=== PATIENT | male | born 1955 | race Caucasian/White ===

== ENCOUNTER 2017-03-19 19:36 | Observation (INO) | payer MEDICARE, OTHER ==
--- NOTE | 2017-03-19 20:00 | ED ---
General Adult HPI - General Chief complaint: Chest Pain Stated complaint: headache/chest pain/SOB Time Seen by Provider: 03/19/17 19:50 Source: patient, RN notes reviewed, old records reviewed Mode of arrival: wheelchair Limitations: no limitations - History of Present Illness Initial comments: This is a 62-year-old male with a year fevers or chest pain. Patient is history of angina history of heart disease, patient is earlier today. Patient is asked history of smoking. Patient doing a chest pain associated or sitting in a chair, worse with activity having a/chest and shortness of breath. No recent jealousy no sick contacts no fevers denies cough or congestion - Related Data Home Medications Medication Instructions Recorded Confirmed Aspirin EC [Ecotrin Low Dose] 81 mg PO DAILY 03/19/17 03/19/17 Atorvastatin [Lipitor] 40 mg PO HS 03/19/17 03/19/17 Baclofen 10 mg PO HS 03/19/17 03/19/17 Budesonide-Formot 160-4.5 Mcg 1 puff INHALATION RT-BID PRN 03/19/17 03/19/17 [Symbicort 160-4.5 Mcg Inhaler] Calcium Carbonate/Vitamin D3 1 tab PO DAILY 03/19/17 03/19/17 [Calcium 600-Vit D3 800 Tab] Celecoxib [CeleBREX] 200 mg PO DAILY 03/19/17 03/19/17 Citalopram Hydrobromide [CeleXA] 40 mg PO DAILY 03/19/17 03/19/17 HYDROcodone/APAP 10-325MG [[place] 1 tab PO QID 03/19/17 03/19/17 10-325] Metoprolol Succinate [Toprol XL] 50 mg PO DAILY 03/19/17 03/19/17 Multivitamins, Thera [Multivitamin 1 tab PO DAILY 03/19/17 03/19/17 (formulary)] Potassium 595 mg PO DAILY 03/19/17 03/19/17 buPROPion HCL [Wellbutrin SR] 150 mg PO DAILY 03/19/17 03/19/17 busPIRone HCL 15 mg PO BID 03/19/17 03/19/17 Previous Rx's Medication Instructions Recorded Lisinopril [Zestril] 20 mg PO DAILY #1 tab 03/20/17 Allergies Allergy/AdvReac Type Severity Reaction Status Date / Time No Known Allergies Allergy Verified 03/19/17 22:10 Review of Systems ROS Statement: Those systems with pertinent positive or pertinent negative responses have been documented in the HPI. ROS Other: All systems not noted in ROS Statement are negative. Past Medical History Past Medical History: Chest Pain / Angina, Hyperlipidemia, Hypertension History of Any Multi-Drug Resistant Organisms: None Reported Past Surgical History: Back Surgery, Hernia Repair, Orthopedic Surgery Past Psychological History: Depression Smoking Status: Former smoker Past Alcohol Use History: None Reported Past Drug Use History: None Reported - Past Family History Father Family Medical History: Chest Pain / Angina, Coronary Artery Disease (CAD) Mother Family Medical History: Cancer, Myocardial Infarction ([place]) General Exam Limitations: no limitations General appearance: alert, in no apparent distress Head exam: Present: atraumatic, normocephalic, normal inspection Eye exam: Present: normal appearance, PERRL, EOMI. Absent: scleral icterus, conjunctival injection, periorbital swelling ENT exam: Present: normal exam, mucous membranes moist Neck exam: Present: normal inspection. Absent: tenderness, meningismus, lymphadenopathy Respiratory exam: Present: normal lung sounds bilaterally. Absent: respiratory distress, wheezes, rales, rhonchi, stridor Cardiovascular Exam: Present: regular rate, normal rhythm, normal heart sounds. Absent: systolic murmur, diastolic murmur, rubs, gallop, clicks GI/Abdominal exam: Present: soft, normal bowel sounds. Absent: distended, tenderness, guarding, rebound, rigid Extremities exam: Present: normal inspection, full ROM, normal capillary refill. Absent: tenderness, pedal edema, joint swelling, calf tenderness Back exam: Present: normal inspection Neurological exam: Present: alert, oriented X3, CN II-XII intact Psychiatric exam: Present: normal affect, normal mood Skin exam: Present: warm, dry, intact, normal color. Absent: rash Course Vital Signs 03/19/17 03/19/17 03/19/17 19:44 19:54 20:58 Temperature 98.5 F Pulse Rate 78 86 Pulse Rate [ 79 [employer] ] Respiratory 20 18 Rate Blood Pressure 178/103 154/99 O2 Sat by Pulse 97 99 Oximetry 03/19/17 21:53 Temperature 97.9 F Pulse Rate Pulse Rate [ [employer] ] Respiratory Rate Blood Pressure O2 Sat by Pulse Oximetry - Reevaluation(s) Reevaluation #1: 03/19/17 20:24 Patient's pain 03/19/17 20:24 Pain is continuing EKG Findings - EKG Comments: EKG Findings:: EKG shows normal sinus rate of 73, by mouth 44, QRS 84, QTC 438 Medical Decision Making - Medical Decision Making 62 Edwin evaluation of heart disease, history of angina. History of chest pain today with chest pain and exertional dyspnea starting when he was watching TV earlier in the day. Continue. This point, pressure is chest with a deep breath. Patient be admitted for cardiac observation - Lab Data Result diagrams: 03/21/17 07:19 03/19/17 20:00 Lab Results 03/19/17 03/19/17 03/19/17 Range/Units 20:00 20:00 20:00 WBC 10.8 H (3.8-10.6) k/uL RBC 4.77 (4.30-5.90) m/uL Hgb 15.3 (13.0-17.5) gm/dL Hct 45.4 (39.0-53.0) % MCV 95.2 (80.0-100.0) fL MCH 32.0 (25.0-35.0) pg MCHC 33.6 (31.0-37.0) g/dL RDW 13.5 (11.5-15.5) % Plt Count 266 (150-450) k/uL Neutrophils % 67 % Lymphocytes % 19 % Monocytes % 7 % Eosinophils % 3 % Basophils % 1 % Neutrophils # 7.3 (1.3-7.7) k/uL Lymphocytes # 2.0 (1.0-4.8) k/uL Monocytes # 0.8 (0-1.0) k/uL Eosinophils # 0.3 (0-0.7) k/uL Basophils # 0.1 (0-0.2) k/uL PT (9.0-12.0) sec INR (<1.2) APTT (22.0-30.0) sec Sodium 143 (137-145) mmol/L Potassium 4.3 (3.5-5.1) mmol/L Chloride 105 (98-107) mmol/L Carbon Dioxide 28 (22-30) mmol/L Anion Gap 10 mmol/L BUN 16 (9-20) mg/dL Creatinine 1.00 (0.66-1.25) mg/dL Est GFR (MDRD) Af Amer >60 (>60 ml/min/1.73 sqM) Est GFR (MDRD) Non-Af >60 (>60 ml/min/1.73 sqM) Glucose 77 (74-99) mg/dL Calcium 9.9 (8.4-10.2) mg/dL Magnesium 2.3 (1.6-2.3) mg/dL Total Bilirubin 0.4 (0.2-1.3) mg/dL AST 34 (17-59) U/L ALT 37 (21-72) U/L Alkaline Phosphatase 109 (38-126) U/L Total Creatine Kinase 102 (55-170) U/L CK-MB (CK-2) 1.2 (0.0-2.4) ng/mL CK-MB (CK-2) Rel Index 1.2 Troponin I <0.012 (0.000-0.034) ng/mL Total Protein 7.4 (6.3-8.2) g/dL Albumin 4.4 (3.5-5.0) g/dL Lipase 92 (23-300) U/L 03/19/17 Range/Units 20:00 WBC (3.8-10.6) k/uL RBC (4.30-5.90) m/uL Hgb (13.0-17.5) gm/dL Hct (39.0-53.0) % MCV (80.0-100.0) fL MCH (25.0-35.0) pg MCHC (31.0-37.0) g/dL RDW (11.5-15.5) % Plt Count (150-450) k/uL Neutrophils % % Lymphocytes % % Monocytes % % Eosinophils % % Basophils % % Neutrophils # (1.3-7.7) k/uL Lymphocytes # (1.0-4.8) k/uL Monocytes # (0-1.0) k/uL Eosinophils # (0-0.7) k/uL Basophils # (0-0.2) k/uL PT 9.9 (9.0-12.0) sec INR 1.0 (<1.2) APTT 23.8 (22.0-30.0) sec Sodium (137-145) mmol/L Potassium (3.5-5.1) mmol/L Chloride (98-107) mmol/L Carbon Dioxide (22-30) mmol/L Anion Gap mmol/L BUN (9-20) mg/dL Creatinine (0.66-1.25) mg/dL Est GFR (MDRD) Af Amer (>60 ml/min/1.73 sqM) Est GFR (MDRD) Non-Af (>60 ml/min/1.73 sqM) Glucose (74-99) mg/dL Calcium (8.4-10.2) mg/dL Magnesium (1.6-2.3) mg/dL Total Bilirubin (0.2-1.3) mg/dL AST (17-59) U/L ALT (21-72) U/L Alkaline Phosphatase (38-126) U/L Total Creatine Kinase (55-170) U/L CK-MB (CK-2) (0.0-2.4) ng/mL CK-MB (CK-2) Rel Index Troponin I (0.000-0.034) ng/mL Total Protein (6.3-8.2) g/dL Albumin (3.5-5.0) g/dL Lipase (23-300) U/L - Radiology Data Radiology results: report reviewed (Chest x-ray is negative for acute disease), image reviewed Critical Care Time Critical Care Time: Yes Total Critical Care Time: 31 Disposition Clinical Impression: Chest pain Disposition: ADMITTED IP TO THIS [facility] Condition: Undetermined
[2017-03-19] MEDS ORDERED: HEPARIN SODIUM,PORCINE 5,000 UNIT/ML 1 ML VIAL IV PRN (20:22)
[2017-03-19] MEDS ORDERED: NITROGLYCERIN SL TABS 0.4 MG TAB SUBLINGUAL PRN (20:22)
[2017-03-19] MEDS ORDERED: HEPARIN SODIUM,PORCINE 5,000 UNIT/ML 1 ML VIAL IV ONE (20:22)
[2017-03-19] MEDS ORDERED: MORPHINE SULFATE 4 MG/ML SYRINGE IV PRN (20:22)
[2017-03-19] MEDS ORDERED: ASPIRIN 81 MG PO STA (20:22)
[2017-03-19] MEDS ORDERED: HEPARIN SODIUM,PORCINE/D5W PMX 25,000 UNIT in DEXTROSE/WATER 1 500ML.BAG IV SCH (20:30)
--- NOTE | 2017-03-19 20:38 | XR ---
EXAMINATION TYPE: XR chest 2V DATE OF EXAM: 03/19/2017 COMPARISON: 05/24/2012 INDICATION: Chest pain TECHNIQUE: Frontal and lateral views of the chest are obtained. FINDINGS: The heart size is normal. The pulmonary vasculature is normal. The lungs are clear. Anterior cervical fusion plate is evident. IMPRESSION: 1. No acute pulmonary process.
[2017-03-19 20:43] LABS: ALT 37 U/L (21-72); AST 34 U/L (17-59); Alkaline Phosphatase 109 U/L (38-126); Anion Gap 10 mmol/L; Blood Urea Nitrogen 16 mg/dL (9-20); Calcium 9.9 mg/dL (8.4-10.2); Carbon Dioxide 28 mmol/L (22-30); Chloride 105 mmol/L (98-107); Glucose 77 mg/dL (74-99); Magnesium 2.3 mg/dL (1.6-2.3); Non-African American GFR(MDRD) >60 (>60 ml/min/1.73 sqM); Potassium 4.3 mmol/L (3.5-5.1); Sodium 143 mmol/L (137-145); Total Bilirubin 0.4 mg/dL (0.2-1.3); Total Protein 7.4 g/dL (6.3-8.2)
[2017-03-19 20:49] LABS: Basophils # (A) 0.1 k/uL (0-0.2); Basophils % (A) 1 %; CH 33.1; CHCM 34.9; Eosinophils # (A) 0.3 k/uL (0-0.7); Eosinophils % (A) 3 %; HCT 45.4 % (39.0-53.0); HDW 2.41; HGB 15.3 gm/dL (13.0-17.5); Luc % (Auto) 3; Lymphocytes % (A) 19 %; MCHC 33.6 g/dL (31.0-37.0); MCV 95.2 fL (80.0-100.0); Mean Platelet Volume 8.6; Monocytes # (A) 0.8 k/uL (0-1.0); Monocytes % (A) 7 %; Neutrophils # (A) 7.3 k/uL (1.3-7.7); Neutrophils % (A) 67 %; RBC 4.77 m/uL (4.30-5.90); RDW 13.5 % (11.5-15.5); WBC 10.8 k/uL (3.8-10.6); WBC (Perox) 10.38
[2017-03-19 21:00] LABS: Partial Thromboplastin Time 23.8 sec (22.0-30.0); Prothrombin Time 9.9 sec (9.0-12.0)
[2017-03-19 21:09] LABS: Creatine Kinase 102 U/L (55-170)
[2017-03-19 21:23] LABS: Creatine Kinase MB 1.2 ng/mL (0.0-2.4); Troponin I <0.012 ng/mL (0.000-0.034)
--- NOTE | 2017-03-19 21:29 | CT ---
EXAMINATION TYPE: CT brain wo con DATE OF EXAM: 03/19/2017 COMPARISON: 10/21/2015 INDICATION: headche DLP: 1147 mGycm, Automated exposure control for dose reduction was used. CONTRAST: None CT of the brain is performed utilizing 3 mm thick sections through the posterior fossa and 3 mm thick sections through the remaining calvarium. Study is performed within 24 hours of arrival to the hosp ital. No abnormal hyperdensity is present to suggest an acute intracranial hemorrhage. No mass lesion is evident. No acute infarcts are evident. There is mild periventricular white matter hypodensity, most likely on the basis of chronic white matter ischemic changes. This was present previously. Ventricles and sulci are appropriate for the patient age. Paranasal sinuses and mastoid air cells within the [id number] are clear. IMPRESSIONS: 1. Mild periventricular white matter ischemic type changes.
[2017-03-19 23:28] VITALS: BMI 25.8
[2017-03-20] MEDS ORDERED: SYMBICORT 160-4.5 MCG INHALER INHALATION PRN (00:07)
[2017-03-20] MEDS ORDERED: ENALAPRILAT 1.25 MG/ML 1 ML VIAL IVP PRN (00:09)
[2017-03-20 00:12] LABS: Creatine Kinase 90 U/L (55-170)
[2017-03-20 00:25] LABS: Creatine Kinase MB 1.2 ng/mL (0.0-2.4); Troponin I <0.012 ng/mL (0.000-0.034)
[2017-03-20 07:43] LABS: Mean Platelet Volume 8.3
[2017-03-20 08:00] LABS: Cholesterol 213 mg/dL (<200); HDL Cholesterol 52 mg/dL (40-60)
[2017-03-20 08:17] LABS: Creatine Kinase 76 U/L (55-170)
[2017-03-20 08:29] LABS: Creatine Kinase MB 1.1 ng/mL (0.0-2.4); Troponin I <0.012 ng/mL (0.000-0.034)
--- NOTE | 2017-03-20 08:57 | CONS ---
This is a 62-year-old male who came in complaining of recurrent chest discomfort as well as headaches. He has noted his blood pressure has been elevated for the last one to two weeks. He has been under considerable stress. He monitors his blood pressure at home. He thought there was something wrong with the blood pressure machine because his blood pressure was quite high. This was confirmed here in the hospital and his blood pressure is elevated. The pain appears pleuritic in nature. He says it gets worse when he takes a deep breath. He is pain free at this time. His two serial ECGs are normal. Three sets of cardiac enzymes are completely normal. Electrolytes are normal. Renal function is normal. White count is 10.8 thousand. His home medications include enalapril 10 mg daily, Wellbutrin, potassium, metoprolol succinate 50 mg daily, Lipitor 40 mg daily and baby aspirin, Celexa, Celebrex. On examination, his blood pressure is 149/82 mmHg. The highest it has been here is 168/105 mmHg. Head and neck examination is normal. No JVD, thyromegaly or carotid bruit. Heart sounds are S1, S2 normal. No murmurs or gallops. Breath sounds are normal. No rhonchi, no crackles. Abdomen is soft, nontender. Extremities are warm, no edema. He is sitting comfortably in bed at this time. His chest x-ray was read as within normal limits. I reviewed his ECGs. He does not have any definite ST-T segment abnormalities. His troponins are normal x2. IMPRESSION: 1. Uncontrolled hypertension. 2. Atypical chest discomfort. 3. Dyslipidemia on statins. 4. Patient uses Celebrex regularly. SUGGEST: 1. Low salt diet. 2. Increase in enalapril to 10 mg twice daily and if this does not control his blood pressure then we should stop oral potassium and add Dyazide instead. He may continue Toprol XL at this time and should continue atorvastatin. Once his blood pressure is under control he can follow up with Dr. Qiu in about 7 to 10 days at the office and follow with Dr. Cohn as scheduled. ANTWON
[2017-03-20] MEDS ORDERED: ASPIRIN 325 MG TAB PO SCH (09:00)
[2017-03-20] MEDS ORDERED: NON-FORMULARY DRUG (Aspirin Ec 81 MG) PO SCH (09:00)
[2017-03-20] MEDS ORDERED: POTASSIUM 595 MG PO SCH (09:00)
[2017-03-20] MEDS: ASPIRIN 81 MG PO SCH (09:02)
[2017-03-20] MEDS: buPROPion SR 150 MG TABLET.ER PO SCH (09:02)
[2017-03-20] MEDS: busPIRone HCl 10 MG TAB PO SCH ×2 (09:02→20:44)
[2017-03-20] MEDS: HYDROcodone/APAP 10-325MG 1 EACH TAB PO SCH ×4 (09:03→20:44)
[2017-03-20] MEDS: CITALOPRAM HYDROBROMIDE 20 MG TAB PO SCH (09:03)
[2017-03-20] MEDS: MULTIVITAMINS, THERA 1 EACH TAB PO SCH (09:07)
[2017-03-20] MEDS: METOPROLOL SUCCINATE (ER) 50 MG TAB.ER.24H PO SCH (09:07)
[2017-03-20] MEDS: LISINOPRIL 20 MG TAB PO SCH (09:07)
[2017-03-20] MEDS: MELOXICAM 7.5 MG TAB PO SCH (09:10)
[2017-03-20] MEDS: CALCIUM CARB-VIT D 500MG-200UN 1 EACH TAB PO SCH (12:39)
--- NOTE | 2017-03-20 18:05 | P.HPIM ---
History of Present Illness H&P Date: 03/20/17 Chief Complaint: Chest pain Patient is a 62-year-old male who presented to [facility] emergency room with a chief complaint of chest pain, patient describes a pressure sensation in his chest, he also describes a sharp pain when he tries to take a deeper breath, he waited for several hours after the pain started as he was taking some family members to counseling, after returning home patient was having severe headache and some chest pain and he decided to come to emergency room. Patient has known history of coronary artery disease he was admitted to [facility] intensive care unit several years ago he had a cardiac catheterization with Dr. kev carvajal at that time, he was told he has a weak heart muscle, he had a second cardiac catheterization 3-4 years ago and he was told that the heart muscle was better he denies ever having any stent placed. Patient follows with Dr. Ailyn Cohn as his primary care physician Past Medical History Past Medical History: Chest Pain / Angina, Hyperlipidemia, Hypertension History of Any Multi-Drug Resistant Organisms: None Reported Past Surgical History: Back Surgery, Heart Catheterization, Hernia Repair, Orthopedic Surgery Additional Past Surgical History / Comment(s): hemmorhoidectomy, pt. states he had 3 seperate bacl surgeries; he broke his L5 had a ladder cage put in there, crushed disc in his thoracic spine that he had a fusion on and right/left shoulder surgeries Past Anesthesia/Blood Transfusion Reactions: No Reported Reaction Smoking Status: Former smoker - Past Family History Father Family Medical History: Chest Pain / Angina, Coronary Artery Disease (CAD) Mother Family Medical History: Cancer, Myocardial Infarction ([place]) Medications and Allergies Home Medications Medication Instructions Recorded Confirmed Type Aspirin EC [Ecotrin Low Dose] 81 mg PO DAILY 03/19/17 03/19/17 History Atorvastatin [Lipitor] 40 mg PO HS 03/19/17 03/19/17 History Baclofen 10 mg PO HS 03/19/17 03/19/17 History Budesonide-Formot 160-4.5 Mcg 1 puff INHALATION RT-BID PRN 03/19/17 03/19/17 History [Symbicort 160-4.5 Mcg Inhaler] Calcium Carbonate/Vitamin D3 1 tab PO DAILY 03/19/17 03/19/17 History [Calcium 600-Vit D3 800 Tab] Celecoxib [CeleBREX] 200 mg PO DAILY 03/19/17 03/19/17 History Citalopram Hydrobromide [CeleXA] 40 mg PO DAILY 03/19/17 03/19/17 History HYDROcodone/APAP 10-325MG [[place] 1 tab PO QID 03/19/17 03/19/17 History 10-325] Metoprolol Succinate [Toprol XL] 50 mg PO DAILY 03/19/17 03/19/17 History Multivitamins, Thera [Multivitamin 1 tab PO DAILY 03/19/17 03/19/17 History (formulary)] Potassium 595 mg PO DAILY 03/19/17 03/19/17 History buPROPion HCL [Wellbutrin SR] 150 mg PO DAILY 03/19/17 03/19/17 History busPIRone HCL 15 mg PO BID 03/19/17 03/19/17 History Allergies Allergy/AdvReac Type Severity Reaction Status Date / Time No Known Allergies Allergy Verified 03/19/17 22:10 Physical Exam Vitals: Vital Signs Temp Pulse Pulse Pulse Resp BP BP 03/20/17 16:00 98.2 F 71 16 03/20/17 12:00 98.3 F 78 18 03/20/17 07:56 97.6 F 74 16 110/70 03/20/17 05:04 98 F 71 18 134/86 03/20/17 04:12 72 18 03/20/17 04:00 89 18 03/19/17 23:15 80 18 03/19/17 22:11 98.2 F 77 18 175/114 03/19/17 22:00 74 18 03/19/17 21:53 97.9 F 03/19/17 20:58 86 18 154/99 03/19/17 19:54 79 03/19/17 19:44 98.5 F 78 20 178/103 BP Pulse Ox 03/20/17 16:00 117/79 96 03/20/17 12:00 135/90 98 03/20/17 07:56 98 03/20/17 05:04 99 03/20/17 04:12 03/20/17 04:00 03/19/17 23:15 149/82 99 03/19/17 22:11 168/105 99 03/19/17 22:00 03/19/17 21:53 03/19/17 20:58 99 08/26/17 19:54 03/19/17 19:44 97 Intake and Output 03/20/17 03/20/17 03/20/17 06:59 14:59 22:59 Intake Total 177.582 Balance 177.582 Intake: Intake, IV Titration 177.582 Amount Heparin Sodium,Porcine/ 177.582 D5w Pmx 25,000 unit In Dextrose/Water 1 500ml. bag @ 12 UNITS/KG/HR 17. 41 mls/hr IV .Q24H JOE Rx #:[id number] Other: Voiding Method Toilet Toilet Toilet # Voids 1 # Bowel Movements 1 In general patient is alert and oriented in no apparent distress HEENT head normocephalic and atraumatic Neck is supple no JVD no goiter no lymphadenopathy Chest exam reveals a few scattered crackles bilaterally no wheezing Cardiac exam reveals regular heart sounds S1 and S2 no gallops no murmurs Abdomen is soft nontender no organomegaly with normal bowel sounds Extremity exam reveals no edema no cyanosis or clubbing Results CBC & Chem 7: 03/20/17 06:33 03/19/17 20:00 Labs: Abnormal Lab Results - Last 24 Hours (Table) 03/19/17 03/19/17 03/20/17 Range/Units 20:00 23:33 06:33 WBC 10.8 H (3.8-10.6) k/uL APTT 37.2 H (22.0-30.0) sec Triglycerides 153 H (<150) mg/dL Cholesterol 213 H (<200) mg/dL LDL Cholesterol, Calc 130 H (0-99) mg/dL 03/20/17 Range/Units 08:36 WBC (3.8-10.6) k/uL APTT 37.6 H (22.0-30.0) sec Triglycerides (<150) mg/dL Cholesterol (<200) mg/dL LDL Cholesterol, Calc (0-99) mg/dL Thrombosis Risk Factor Assmnt - Choose All That Apply Any of the Below Risk Factors Present?: No Other Risk Factors: Yes Each Risk Factor Represents 2 Points: Age 61-74 years Other congenital or acquired thrombophilia - If yes, enter type in comment: No Thrombosis Risk Factor Assessment Total Risk Factor Score: 2 Thrombosis Risk Factor Assessment Level: Low Risk Assessment and Plan Plan: #1 episode of chest pain, resolved serial EKGs and cardiac enzymes ordered #2 hypertensive urgency on presentation, dose of lisinopril has been increased from 10 mg daily to 20 mg daily, and blood pressure is better controlled at this time #3 underlying known history of coronary artery disease and possible cardiomyopathy awaiting to obtain records from Dr. Qiu's office #4 underlying history of hypertension #5 underlying history of hyperlipidemia #6 underlying history of COPD maintained on Symbicort inhaler #7 underlying history of depression with anxiety At this time patient is admitted to 24-hour observation unit serial EKG and cardiac enzymes are ordered cardiology consultation request Will obtain a previous cardiac history from Dr. Qiu's office on Tuesday Will follow in a.m.
[2017-03-20 19:53] VITALS: RESP 18
[2017-03-20] MEDS ORDERED: BACLOFEN 10 MG TAB PO SCH (21:00)
[2017-03-20] MEDS ORDERED: ATORVASTATIN 40 MG TAB PO SCH (21:00)
[2017-03-20 23:53] VITALS: TEMP 98.1
[2017-03-21 07:36] VITALS: BP 149/86; PULSE 66
[2017-03-21] MEDS: HYDROcodone/APAP 10-325MG 1 EACH TAB PO SCH (08:20)
[2017-03-21] MEDS: buPROPion SR 150 MG TABLET.ER PO SCH (08:20)
[2017-03-21] MEDS: ASPIRIN 81 MG PO SCH (08:20)
[2017-03-21] MEDS: busPIRone HCl 10 MG TAB PO SCH (08:21)
[2017-03-21] MEDS: CITALOPRAM HYDROBROMIDE 20 MG TAB PO SCH (08:21)
[2017-03-21] MEDS: LISINOPRIL 20 MG TAB PO SCH (08:21)
[2017-03-21] MEDS: METOPROLOL SUCCINATE (ER) 50 MG TAB.ER.24H PO SCH (08:21)
[2017-03-21] MEDS: MULTIVITAMINS, THERA 1 EACH TAB PO SCH (08:21)
[2017-03-21] MEDS: MELOXICAM 7.5 MG TAB PO SCH (08:22)
--- NOTE | 2017-03-21 11:08 | P.DS ---
Providers Date of admission: 03/19/17 20:22 Expected date of discharge: 03/21/17 Attending physician: Bart Doshi Consults: 03/19/17 20:22 Consult Physician Urgent Consulting Provider: Braden Euceda Consult Reason/Comments: cp Do you want consulting provider notified?: Yes Primary care physician: Donna Cohn Hospital Course: Discharge diagnosis #1 episode of chest pain, [place] ruled out. Troponins negative 3 sets. EKG shows no acute changes. #2 hypertensive urgency on presentation, dose of lisinopril has been increased from 10 mg daily to 20 mg daily, and blood pressure is better controlled at this time #3 underlying known history of coronary artery disease and possible cardiomyopathy awaiting to obtain records from Dr. Qiu's office #4 underlying history of hypertension #5 underlying history of hyperlipidemia #6 underlying history of COPD maintained on Symbicort inhaler #7 underlying history of depression with anxiety #8 headache secondary to elevated blood pressures Hospital course Patient is a 62-year-old male who presented to [facility] emergency room with a chief complaint of chest pain, patient describes a pressure sensation in his chest, he also describes a sharp pain when he tries to take a deeper breath, he waited for several hours after the pain started as he was taking some family members to counseling, after returning home patient was having severe headache and some chest pain and he decided to come to emergency room. Patient made it to the observation floor. Troponins are negative 3 sets. EKG shows no acute changes. Patient seen evaluated by cardiology. They did increase his lisinopril to 20 mg daily. Blood pressures have shown improvement. Patient's chest pain and today Resolved computed tomography scan of the brain showed no acute changes. Likely patient's chest pain and headaches were related to his elevated blood pressures. Blood pressures are better controlled he was given a prescription for lisinopril following up with cardiology in the outpatient setting. Won't follow up with his PCP in 1 week I performed an examination of the patient and discussed their management with the physician Pool Manager. I have reviewed the Physician Pool Manager's notes and agree with the documented findings and plan of care Patient Condition at Discharge: Stable Plan - Discharge Summary New Discharge Prescriptions: New Lisinopril [Zestril] 20 mg PO DAILY #1 tab Continue Multivitamins, Thera [Multivitamin (formulary)] 1 tab PO DAILY Celecoxib [CeleBREX] 200 mg PO DAILY Aspirin EC [Ecotrin Low Dose] 81 mg PO DAILY HYDROcodone/APAP 10-325MG [[place] 10-325] 1 tab PO QID Citalopram Hydrobromide [CeleXA] 40 mg PO DAILY Baclofen 10 mg PO HS Atorvastatin [Lipitor] 40 mg PO HS busPIRone HCL 15 mg PO BID buPROPion HCL [Wellbutrin SR] 150 mg PO DAILY Metoprolol Succinate [Toprol XL] 50 mg PO DAILY Budesonide-Formot 160-4.5 Mcg [Symbicort 160-4.5 Mcg Inhaler] 1 puff INHALATION RT-BID PRN PRN Reason: Dyspnea Potassium 595 mg PO DAILY Calcium Carbonate/Vitamin D3 [Calcium 600-Vit D3 800 Tab] 1 tab PO DAILY Discontinued Enalapril [Vasotec] 10 mg PO DAILY Discharge Medication List Aspirin EC [Ecotrin Low Dose] 81 mg PO DAILY 03/19/17 [History] Atorvastatin [Lipitor] 40 mg PO HS 03/19/17 [History] Baclofen 10 mg PO HS 03/19/17 [History] Budesonide-Formot 160-4.5 Mcg [Symbicort 160-4.5 Mcg Inhaler] 1 puff INHALATION RT-BID PRN 03/19/17 [History] Calcium Carbonate/Vitamin D3 [Calcium 600-Vit D3 800 Tab] 1 tab PO DAILY [History] Celecoxib [CeleBREX] 200 mg PO DAILY 03/19/17 [History] Citalopram Hydrobromide [CeleXA] 40 mg PO DAILY 03/19/17 [History] HYDROcodone/APAP 10-325MG [[place] 10-325] 1 tab PO QID 03/19/17 [History] Metoprolol Succinate [Toprol XL] 50 mg PO DAILY 03/19/17 [History] Multivitamins, Thera [Multivitamin (formulary)] 1 tab PO DAILY 03/19/17 [History ] Potassium 595 mg PO DAILY 03/19/17 [History] buPROPion HCL [Wellbutrin SR] 150 mg PO DAILY 03/19/17 [History] busPIRone HCL 15 mg PO BID 03/19/17 [History] Lisinopril [Zestril] 20 mg PO DAILY #1 tab 03/20/17 [Rx] Follow up Appointment(s)/Referral(s): Steafni Qiu MD [STAFF PHYSICIAN] - 2 Weeks Donna Cohn DO [Primary Care Provider] - 1 Week Activity/Diet/Wound Care/Special Instructions: Diet: cardiac Activity: as tolerated Discharge Disposition: HOME SELF-CARE
[2017-03-21] MEDS: CALCIUM CARB-VIT D 500MG-200UN 1 EACH TAB PO SCH (12:12)
== END 2017-03-21 12:11 | disposition home or self-care (01) ==
LOC: EC 19:36 → 3OBS 20:22
PROVIDERS: ADMIT Internal Medicine; ATTEND Internal Medicine
DX: R07.89 Other chest pain (principal); I16.0 Hypertensive urgency; I25.10 Atherosclerotic heart disease of native coronary artery without angina pectoris; R06.02 Shortness of breath; I10 Essential (primary) hypertension; E78.5 Hyperlipidemia, unspecified; J44.9 Chronic obstructive pulmonary disease, unspecified; F41.9 Anxiety disorder, unspecified; F43.9 Reaction to severe stress, unspecified; F32.9 Major depressive disorder, single episode, unspecified; Z79.82 Long term (current) use of aspirin; Z79.899 Other long term (current) drug therapy; Z79.51 Long term (current) use of inhaled steroids; Z79.891 Long term (current) use of opiate analgesic; Z87.891 Personal history of nicotine dependence; Z82.49 Family history of ischemic heart disease and other diseases of the circulatory system
CPT/HCPCS: 99291; 96376 ×2; 96375 ×2; 96365 ×2; 96366 ×2; 36415; 94760; 93005; 80061; 80053; 82550 ×2; 82553 ×2; 83690; 83735; 84484 ×2; 85025; 85049 ×2; 85610; 85730 ×2; 71020; 70450; G0378 ×3; J2270; J1644 ×2; S0106 ×2

== ENCOUNTER → 2019-10-29 | Outpatient (CLI) | payer MEDICARE, OTHER ==
--- NOTE | 2019-10-29 08:54 | US ---
EXAMINATION TYPE: US abdomen limited DATE OF EXAM: 10/29/2019 COMPARISON: NONE CLINICAL HISTORY: K81.1 Chronic cholecystitis. EXAM MEASUREMENTS: Liver Length: 16.4 cm Gallbladder Wall: 0.2 cm CBD: 0.4 cm Right Kidney: 12.7 x 5.8 x 4.5 cm Patient of large body habitus carrying his weight in his abdomen making exam technically difficult Pancreas: Tail obscured by overlying bowel gas Liver: Increased attenuation, decreased visualization of vessels suggestive of fatty infiltrate, sahni ited views due to attenuation. This finding limits evaluation for hepatic masses. Gallbladder: Dependent layering biliary sludge Evidence for sonographic Up's sign: no CBD: wnl Right Kidney: inferior pole probable cyst measuring 3.4 x 3.3 x 2.7cm. IMPRESSION: Suboptimal exam given patient body habitus. 1. Sonographic findings most commonly related to hepatic steatosis. Correlate with liver function dewayne ts. 2. Biliary sludge without sonographic evidence of acute cholecystitis. Sonographic Up's sign was negative. 3. Probable right inferior pole renal cysts although suboptimally seen given patient body habitus. Th is could be confirmed with three-phase CT abdomen on a nonemergent basis.
--- NOTE | 2019-10-29 10:52 | NM ---
EXAMINATION TYPE: NM hepatobiliary w CCK DATE OF EXAM: 10/29/2019 COMPARISON: Abdominal ultrasound dated 10/29/2019 HISTORY: Chronic cholecystitis TECHNIQUE: After the intravenous administration of 5.2 mCi Tc 99m Mebrofenin hepatobiliary scintigrap hy is performed. Immediate images post injection. FINDINGS: There is satisfactory initial accumulation of tracer by the liver. The gallbladder is visualized wit hin 18 minutes. The small bowel activity is noted within 10 minutes. At one hour CCK was administer ed, patient was injected with 1.9 mcg of Kinevac, and gallbladder ejection fraction is calculated at 15 %, low. Therefore there is no scintigraphic evidence of cystic or common bile duct obstruction to suggest acute cholecystitis or gallbladder dyskinesia. IMPRESSION: Abnormally low biliary ejection fraction of 15% compatible with biliary dyskinesia. No sc intigraphic evidence of acute or chronic cholecystitis.
== END | disposition home or self-care (01) ==
LOC: RADUSMAIN 07:49
PROVIDERS: ATTEND Surgery
DX: K76.0 Fatty (change of) liver, not elsewhere classified (principal); R93.2 Abnormal findings on diagnostic imaging of liver and biliary tract
CPT/HCPCS: 76705; 78227; A9537; J2805

== ENCOUNTER → 2019-12-10 | Outpatient (CLI) | payer MEDICARE | END | disposition home or self-care (01) | LOC: LABWHC1 07:53 | PROVIDERS: ATTEND Surgery | DX: Z53.9 Procedure and treatment not carried out, unspecified reason (principal) ==

== ENCOUNTER 2021-02-22 12:38 | Emergency (ER) | payer MEDICARE, OTHER ==
[2021-02-22 12:45] VITALS: RESP 18
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
--- NOTE | 2021-02-22 13:33 | XR ---
EXAMINATION TYPE: XR ribs LT w pa chest xray DATE OF EXAM: 02/22/2021 COMPARISON: NONE HISTORY: Pain TECHNIQUE: Frontal view of the chest and 4 views of the left ribs submitted FINDINGS: Postsurgical change overlying the cervical spine. Heart size normal. No pneumothorax or ple ural effusion. Lungs are clear. Arthropathy of the AC joint. Mildly displaced fractures involving lef t fifth, sixth and seventh ribs. IMPRESSION: 1. Mild displaced fractures anterolateral left fifth, sixth, and seventh ribs. No pneumothorax.
[2021-02-22 15:00] VITALS: BP 138/71; PULSE 75; TEMP 98.2
== END 2021-02-22 14:10 | disposition home or self-care (01) ==
LOC: EC 12:38
DX: S22.42XA Multiple fractures of ribs, left side, initial encounter for closed fracture (principal); I10 Essential (primary) hypertension; E78.5 Hyperlipidemia, unspecified; Z79.899 Other long term (current) drug therapy; Z87.891 Personal history of nicotine dependence; V19.9XXA Pedal cyclist (driver) (passenger) injured in unspecified traffic accident, initial encounter; Y92.89 Other specified places as the place of occurrence of the external cause
CPT/HCPCS: 99285

== ENCOUNTER → 2021-11-19 | Outpatient (CLI) | payer MEDICARE, OTHER ==
--- NOTE | 2021-11-19 13:20 | CONS ---
CONSULTATION DATE OF SERVICE: 11/19/2021 This 66-year-old gentleman has been re-evaluated in [facility] Center for obstructive sleep apnea-hypopnea syndrome. HISTORY OF PRESENT ILLNESS/SLEEP-WAKE EVALUATION: The last time this patient was seen in Sleep Center was in 2015. At that time he was on BiPAP with a very high range of pressure, 24/20, for obstructive sleep apnea-hypopnea syndrome. Later the patient stopped using his BiPAP and has not used it for the last several years. At present he snores, has episodes of stopped breathing during sleep. His sleep schedule is from 10 or 12 midnight until 6 a.m. Usually he has no significant problems with falling asleep, although he has a TV set in the bedroom. He usually sleeps on the side position. He sleeps through the night. No history of hypnagogic hallucinations, sleep paralysis or cataplexy. During the day, he takes a nap one time. According to the patient, he is ready for a nap any time. [place] Sleepiness Scale is in very high range at 18. He drinks 2 or 3 cups of caffeinated beverages during the day. Compared with the previous visit, the patient's weight increased by about 33 pounds. He explains this is because he quit smoking. PAST MEDICAL HISTORY: Positive for hypertension, hyperlipidemia, anxiety, back problems. PAST SURGICAL HISTORY: Several back surgeries. MEDICATIONS: Metoprolol 100 mg once a day. SOCIAL HISTORY: He quit smoking cigarettes. Sometimes he uses marijuana. Alcohol consumption occasional. FAMILY HISTORY: Positive for stroke, hypertension, cancer, during sleep. REVIEW OF SYSTEMS: Loud snoring, sleepiness during the day. No fevers. No double vision. No recent chest pain. No shortness of breath. No abdominal pain. No bleeding episodes. No blood in the urine. No seizure episodes. PHYSICAL EXAMINATION: GENERAL: Pleasant gentleman without distress. VITAL SIGNS: BP 118/77, HR 88, RR 16, height 5 feet 5 inches, weight 196 pounds, body mass index 32.6, temperature 98.1, oxygen saturation at room air 96%. HEENT: PERRLA, EOMI, evaluation of oropharynx showed tongue protrudes midline. Low position of soft palate. NECK: Supple, no JVD. Thyroid is not palpable. Neck is wide; 17 inches in circumference. LUNGS: Clear to percussion and to auscultation. Good air exchange. No wheezing or rhonchi. HEART: S1, S2 regular. No murmurs, gallops, or rubs. ABDOMEN: Soft and nontender. Bowel sounds are present. No organomegaly appreciated. EXTREMITIES: No clubbing or cyanosis. JACQUARD LOOM CARD CHANGER: Awake, alert, and oriented X3. Cranial nerves 2 to 7 intact. There is no fasciculation or atrophy. noted. No focal deficits observed. IMPRESSION: 1. Loud snoring, low position of soft palate, wide neck, 17 inches, sleepiness with high [place] Sleepiness Scale, history of obstructive sleep apnea before; obstructive sleep apnea-hypopnea syndrome. 2. Obesity in mild range. Body mass index 32.6. The patient's weight increased by 33 pounds compared with previous visits. 3. Hypertension. 4. Hyperlipidemia. 5. History of anxiety. 6. History of back problems, status post several back surgeries. PLAN: 1. Because the patient stopped using his machine several years ago and because his weight has significantly changed, we will repeat polysomnogram for evaluation of patient's breathing at the present time and do CPAP titration for correction of respiratory abnormalities. Previously BiPAP pressure was in very high range at 24/20. 2. Watching weight. 3. No driving if feeling any sleepiness. Thank you very much for referring this patient for consultation. Sincerely, Matthew Waterman MD, PhD, FAASM Diplomat of [place] [employer] Sleep Medicine Board of [place] [employer] Access Service Representative of [facility] Wesley MMODL / IJN: [id number] /
== END | disposition home or self-care (01) ==
LOC: SLEEP 11:00
PROVIDERS: ATTEND Internal Medicine
DX: G47.33 Obstructive sleep apnea (adult) (pediatric) (principal); I10 Essential (primary) hypertension; E78.5 Hyperlipidemia, unspecified; F41.9 Anxiety disorder, unspecified
CPT/HCPCS: 99211

== ENCOUNTER 2023-04-02 12:07 | Inpatient (IN) | payer MEDICARE, MEDICAID ==
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
[2023-04-02 14:32] LABS: Glucose,Whole Blood 120 mg/dL (70-110)
[2023-04-02 15:32] LABS: Appearance,Urine Clear (Clear); Bilirubin,Urine Negative (Negative); Blood,Urine Negative (Negative); Color,Urine Light Yellow; Glucose,Urine (UA) 4+ (Negative); Ketones,Urine Negative (Negative); Leukocyte Esterase,Urine Negative (Negative); Nitrite,Urine Negative (Negative); Protein,Urine Negative (Negative); Specific Gravity,Urine 1.019 (1.001-1.035); Urobilinogen,Urine <2.0 mg/dL (<2.0)
[2023-04-02 15:56] LABS: Amphetamine Screen,Urine Not Detected (NotDetected); Barbiturate Screen,Urine Not Detected (NotDetected); Benzodiazepines Screen,Urine Not Detected (NotDetected); Cocaine Screen,Urine Not Detected (NotDetected); Methadone Screen, Urine Not Detected (NotDetected); Opiate Screen,Urine Not Detected (NotDetected); Oxycodone Screen, Urine Not Detected (NotDetected); Phencyclidine Screen,Urine Not Detected (NotDetected); Tricyclic Antidepressant,Urine Not Detected (NotDetected); Urn Cannabinoid Scrn Not Detected (NotDetected)
[2023-04-02] MEDS ORDERED: ACETAMINOPHEN TAB 325 MG TAB PO PRN (16:13)
[2023-04-02] MEDS ORDERED: MAG HYDROX/AL HYDROX/SIMETH 30 ML CUP PO PRN (16:13)
[2023-04-02] MEDS ORDERED: MAGNESIUM HYDROXIDE 2,400 MG/30 ML CUP PO PRN (16:13)
[2023-04-02] MEDS ORDERED: LORazepam 1 MG TAB PO PRN (16:17)
[2023-04-02] MEDS ORDERED: haloperidoL 5 MG TAB PO PRN (16:17)
[2023-04-02] MEDS ORDERED: HALOPERIDOL LACTATE 5 MG/ML 1 ML VIAL IM PRN (16:17)
[2023-04-02] MEDS ORDERED: LORazepam 2 MG/ML INJ IM PRN (16:17)
[2023-04-02] MEDS: lisinopriL 10 MG TAB PO SCH (20:14)
[2023-04-02] MEDS: QUEtiapine 50 MG TAB PO SCH (20:14)
[2023-04-02] MEDS: GABAPENTIN 100 MG CAP PO SCH (20:14)
[2023-04-02] MEDS: metFORMIN 850 MG TAB PO SCH (20:15)
[2023-04-02] MEDS ORDERED: NON FORMULARY DRUG (Potassium Gluconate [Potassium Gluconate Er] 99 MG Tablet.Er) PO SCH (21:00)
[2023-04-03] MEDS ORDERED: lisinopriL 10 MG TAB PO SCH (09:00)
[2023-04-03] MEDS ORDERED: NON FORMULARY DRUG (Ubidecarenone [Co Q-10] 300 MG Capsule) PO SCH (09:00)
[2023-04-03] MEDS ORDERED: DAPAGLIFLOZIN PROPANEDIOL 5 MG TABLET PO SCH (09:15)
--- NOTE | 2023-04-03 09:34 | P.CONS ---
History of Present Illness - Reason for Consult Consult date: 04/03/23 - Chief Complaint Depressed mood - History of Present Illness * 68-year-old gentleman with past medical history significant for hypertension, hyperlipidemia, diabetes mellitus admitted to behavioral health unit secondary to psychiatric reason. 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 At baseline patient has been very anxious * Blood work pending at the time of assessment, home medications reviewed and reconciled REVIEW OF SYSTEMS: Depressed mood CONSTITUTIONAL: No fever, no malaise, no fatigue. HEENT: No recent visual problems or hearing problems. Denied any sore throat. CARDIOVASCULAR: No chest pain, orthopnea, PND, no palpitations, no syncope. PULMONARY: No shortness of breath, no cough, no hemoptysis. GASTROINTESTINAL: No diarrhea, no nausea, no vomiting, no abdominal pain. NEUROLOGICAL: No headaches, no weakness, no numbness. HEMATOLOGICAL: Denies any bleeding or petechiae. GENITOURINARY: Denies any burning micturition, frequency, or urgency. MUSCULOSKELETAL/RHEUMATOLOGICAL: Denies any joint pain, swelling, or any muscle pain. ENDOCRINE: Denies any polyuria or polydipsia. PHYSICAL EXAMINATION: GENERAL: The patient is alert and oriented x3, not in any acute distress. Well developed, well nourished. HEENT: Pupils are round and equally reacting to light. EOMI. No scleral icterus. No conjunctival pallor. Normocephalic, atraumatic. No pharyngeal erythema. No thyromegaly. CARDIOVASCULAR: S1 and S2 present. No murmurs, rubs, or gallops. PULMONARY: Chest is clear to auscultation, no wheezing or crackles. ABDOMEN: Soft, nontender, nondistended, normoactive bowel sounds. No palpable organomegaly. MUSCULOSKELETAL: No joint swelling or deformity. EXTREMITIES: No cyanosis, clubbing, or pedal edema. NEUROLOGICAL: Gross neurological examination did not reveal any focal deficits. Patient appears depressed SKIN: No rashes. Past Medical History Past Medical History: Chest Pain / Angina, Hyperlipidemia, Hypertension History of Any Multi-Drug Resistant Organisms: None Reported Past Surgical History: Back Surgery, Hernia Repair, Orthopedic Surgery Additional Past Surgical History / Comment(s): hemmorhoidectomy, pt. states he had 3 seperate bacl surgeries; he broke his L5 had a ladder cage put in there, crushed disc in his thoracic spine that he had a fusion on and right/left shoulder surgeries Past Anesthesia/Blood Transfusion Reactions: No Reported Reaction Smoking Status: Never smoker - Past Family History Father Family Medical History: Chest Pain / Angina, Coronary Artery Disease (CAD) Mother Family Medical History: Cancer, Myocardial Infarction ([place]) Medications and Allergies Home Medications Medication Instructions Recorded Confirmed Type Aspirin EC [Ecotrin Low Dose] 81 mg PO DAILY 03/19/17 04/02/23 History HYDROcodone/APAP 10-325MG [[place] 1 tab PO QID 03/19/17 04/02/23 History 10-325] Baclofen [Lioresal] 20 mg PO HS 02/22/21 04/02/23 History Furosemide [Lasix] 40 mg PO DAILY 02/22/21 04/02/23 History Gabapentin [Neurontin] 100 mg PO BID 02/22/21 04/02/23 History Metoprolol Succinate (ER) [Toprol 100 mg PO DAILY 02/22/21 04/02/23 History Xl] Potassium Gluconate [Potassium 99 mg PO DAILY 02/22/21 04/02/23 History Gluconate ER] metFORMIN HCL [Glucophage] 850 mg PO BID 02/22/21 04/02/23 History Calcium Citrate/Vitamin D3 1 tab PO DAILY 04/02/23 04/02/23 History [Citracal + D Maximum Caplet] Empagliflozin [Jardiance] 10 mg PO DAILY 04/02/23 04/02/23 History Enalapril [Vasotec] 5 mg PO BID 04/02/23 04/02/23 History Multivit-Min/FA/Lycopen/Lutein 1 tab PO DAILY 04/02/23 04/02/23 History [Centrum Silver Tablet] QUEtiapine FUMARATE [SEROquel] 25 mg PO HS 04/02/23 04/02/23 History Ubidecarenone [Co Q-10] 300 mg PO DAILY 04/02/23 04/02/23 History Allergies Allergy/AdvReac Type Severity Reaction Status Date / Time No Known Allergies Allergy Verified 04/02/23 17:30 Physical Exam Vitals: Vital Signs Temp Pulse Pulse Resp BP BP Pulse Ox 04/03/23 06:50 97.1 F L 88 16 132/84 98 04/02/23 17:30 97.5 F L 92 16 141/94 97 04/02/23 16:38 88 16 146/90 98 04/02/23 12:10 98.6 F 94 20 137/88 96 Intake and Output 04/02/23 04/03/23 04/03/23 22:59 06:59 14:59 Other: Weight 90.775 kg Results Labs: Abnormal Lab Results - Last 24 Hours (Table) 04/02/23 04/02/23 Range/Units 14:31 14:43 POC Glucose (mg/dL) 120 H (70-110) mg/dL Urine Glucose (UA) 4+ H (Negative) Assessment and Plan Assessment: Assessment and plan * Depressed mood * Hypertension * Diabetes mellitus * Hyperlipidemia * Chronic back pain with degenerative disc disease * Home medications reviewed and reconciled, continue aspirin, Lasix, lisinopril, metformin * Continue to maintain maximum safety precautions while admitted and behavioral health unit * In regards to diabetes Accu-Cheks before meals at bedtime continue patient on correctional insulin and metformin, continue farxiga * In regard to chronic back pain continue patient on gabapentin
[2023-04-03] MEDS: GABAPENTIN 100 MG CAP PO SCH (10:00)
[2023-04-03] MEDS: BACLOFEN 10 MG TAB PO SCH (10:00)
[2023-04-03] MEDS: DAPAGLIFLOZIN PROPANEDIOL 5 MG TABLET PO SCH (10:00)
[2023-04-03] MEDS: FUROSEMIDE 40 MG TAB PO SCH (10:00)
[2023-04-03] MEDS: metFORMIN 850 MG TAB PO SCH ×2 (10:00→20:40)
[2023-04-03] MEDS: MULTIVITAMINS, THERA 1 EACH TAB PO SCH (10:00)
[2023-04-03] MEDS: ASPIRIN 81 MG PO SCH (10:01)
[2023-04-03] MEDS: METOPROLOL SUCCINATE (ER) 100 MG TAB.ER.24H PO SCH (10:01)
[2023-04-03] MEDS: NICOTINE 14MG/24HR PATCH TRANSDERM SCH (10:01)
[2023-04-03] MEDS: lisinopriL 10 MG TAB PO SCH ×2 (10:01→20:40)
[2023-04-03 13:15] LABS: Glucose,Whole Blood 92 mg/dL (70-110)
[2023-04-03] MEDS: INSULIN ASPART (NovoLOG) 100 UNIT/ML VIAL SQ SCH ×3 (14:34→20:34)
--- NOTE | 2023-04-03 16:27 | P.HP ---
Psychiatric H&P - . H&P Date: 04/03/23 History & Physical: IDENTIFYING DATA: Patient is a 68 year old male who presented to the hospital due to homicidal ideations. HPI: Patient presented to the hospital on 04/02/23 due to endorsing homicidal ideations. Per EPS note, "Pt has multiple life stressors, including caring for his 4 grandkids aged 12-15, he has CPS involvement currently d/t aligations of giving his grandkids ETOH and drugs. Pt has increased anxiety and increased stress within the household. Pt states that he had his bring him here because he felt as if he was going to hurt someone. He got into a verbal altercation with his granddaughter in which her brother and grandson got involved to remove pt from the situation. Pt then began to get into it with his grandson whom he threatened to harm. Pt states, " if a gun were in a drawer I may have used it today". He was scared that he would kill someone today. He states he walked out of the household and began to drive and thought about just driving out of state. While in the car he states he thought about vearing off the road to hit someone. He states that he then had his bring him here after he returned home. Pt does have access to a gun in the household. Per a phone call with Pts , she states that he is the only one with a shahid to the safe and he can access the weapon. She states that he threatens everyone and is verbally aggressive. She thought that he was going to hit his granddaughter today, she does states that he has NOT hit anyone in the home. Pt states that he has no supports and feels like he needs counseling. He admits to having a viscous temper and worried about being out of control. Pt does not see anyone currently for mental health. Denies SI, hallucinations, or delusions." On assessment today, patient is calm and cooperative. He admits he was feeling overwhelmed and stressed over financial difficulties with the bank claiming he owed back taxes, and as well as raising his son's 4 children (ages 12- 15 years old). He denies supplying his grandkids with alcohol and marijuana. He also has his 21 year old grandchild and his and a 3 yo great-granddaughter staying with them due to their financial difficulties. Today, he admits to mild depression when he thinks about his life stressors. He reports irritability/anger. He reports good sleep, however he is prescribed Seroquel at bedtime for sleep. He denies excessive guilt and denies anhedonia. He denies SI/HI, intent or plan. He has a gun (.22 caliber) in pieces (disassembled) and locked in a safe. He has no plans on using the gun to harm himself or others. He is future-oriented and wants to go to [facility] for counseling. Patient denies any suicidal or homicidal ideation, intent or plan. At this time patient denies any auditory or visual hallucinations. Patient denies any flight of ideas racing thoughts and increased in goal directed behavior. Patient admits to using marijuana about once a month. He denies any other illicit drug. He drinks about one beer a week. He reports he has a remote history of heavy alcohol use, reports he used to drink heavy in his 30's, for about 15 years. He reports he quit his drinking heavily when his threatened to leave him, and he quit cold turkey. He is a former smoker. PAST PSYCHIATRIC HISTORY: Patient states that he has never been diagnosed with mental health issues. Patient denies being on any psychiatric medications, however he is prescribed Seroquel for sleep as a home med. He also takes gabapentin for neuropathic pain. Patient denies any previous psychiatric hospitalizations. Patient denies any psychiatric outpatient follow-up. Patient denies any history of suicide attempts in the past. PMH: Past Medical History: Chest Pain / Angina, Hyperlipidemia, Hypertension, JAZZ History of Any Multi-Drug Resistant Organisms: None Reported Past Surgical History: Back Surgery, Hernia Repair, Orthopedic Surgery Additional Past Surgical History / Comment(s): hemorroidectomy, pt. states he had 3 seperate bacl surgeries; he broke his L5 had a ladder cage put in there, crushed disc in his thoracic spine that he had a fusion on and right/left shoulder surgeries Past Anesthesia/Blood Transfusion Reactions: No Reported Reaction Past Psychological History: Depression Smoking Status: Former smoker Past Alcohol Use History: None Reported Past Drug Use History: Marijuana ALLERGIES: as per EMR CHEMICAL DEPENDENCY HISTORY: as per HPI FAMILY PSYCHIATRIC/SUBSTANCE USE HISTORY: [id number] completed suicide in 2012. Oldest son- "paranoid schizophrenic", suspects drug use. Daughter - TBI from car accident Middle son- has attempted suicide at least twice 21 year old grandchild goes to [facility] for anger management. SOCIAL HISTORY: Patient was born and raised in [place], [place]. He is a , was in the [employer]. He lives in his own house with his and 4 grandchildren, plus his 21 yo grandchild//greatgrandchild, plus 4 dogs. He collects social security. 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 He is for about 55 years, and has kids. His youngest son several years ago from heart disease. MENTAL STATUS EXAM: General Appearance: Patient appears to be older than stated age, with long talbert hair and long epps. Patient appears to have good hygiene and grooming. Behavior: Patient is seated without any agitated behavior. Speech: Patient's speech is fluent and non-pressured. Mood/Affect: Patient reports their mood is ok maybe a little depressed if he thinks about the problems at home, affect is reactive. Suicidality/Homicidality: Patient denies having any homicidal ideation intent or plan. Denies any suicidal ideation,intent or plan. Perceptions: Patient denies any visual hallucinations and denies any auditory hallucinations. Though content/process: There is no evidence of any delusional thought content and thought process is linear and goal-directed. Memory and concentration: AOX3, grossly intact for the purposes of this session. Can spell "WORLD" backwards Judgment and insight: fair STRENGTHS/WEAKNESSES: Strength is that patient is resilient and has stable housing. Weakness is that patient has financial stress. INTELLECT: Average IMPRESSIONS: Unspecified depressive disorder Rule out Intermittent Explosive Disorder Alcohol use disorder, in remission PLAN: -Patient is admitted under involuntary status to [facility]HU for stabilization of psychiatric symptoms and safety. Patient has signed adult voluntary form and medication consent and is placed in patient's chart. -Medications: Seroquel has been increased to 50 mg QHS for mood/sleep. Increase Gabapentin to 300 mg BID for mood stabilization. -Ativan and Haldol PRN for agitation/aggression -Patient was informed of the risks, benefits and side effects of the medication and patient verbally consented to taking the medications. Patient signed med consent form and was placed in chart. -Internal Medicine consult to perform medical evaluation and physical. -NRT - not needed since he does not smoke tobacco currently. -SW on board for discharge planning. Encourage patient to participate in groups to work on coping skills. Plan for discharge in 1-2 days if continues to stabilize. Allergies Allergy/AdvReac Type Severity Reaction Status Date / Time No Known Allergies Allergy Verified 04/02/23 17:30 Vital Signs Temp 97.1 F L 04/03/23 06:50 Pulse 101 H 04/03/23 09:55 Resp 16 04/03/23 06:50 BP 142/85 04/03/23 09:55 Pulse Ox 98 04/03/23 06:50 FiO2 Intake & Output 04/02/23 04/03/23 04/03/23 18:59 06:59 18:59 Weight 90.775 kg Laboratory Last Values POC Glucose (mg/dL) 92 mg/dL (70-110) 04/03/23 13:11 POC Glu Dairy Cattle Farm Manager ID [place]ota [place] 04/03/23 13:11 Urine Color Light Yellow 04/02/23 14:43 Urine Appearance Clear (Clear) 04/02/23 14:43 Urine pH 5.0 (5.0-8.0) 04/02/23 14:43 Ur Specific [place] 1.019 (1.001-1.035) 04/02/23 14:43 Urine Protein Negative (Negative) 04/02/23 14:43 Urine Glucose (UA) 4+ (Negative) H 04/02/23 14:43 Urine Ketones Negative (Negative) 04/02/23 14:43 Urine Blood Negative (Negative) 04/02/23 14:43 Urine Nitrite Negative (Negative) 04/02/23 14:43 Urine Bilirubin Negative (Negative) 04/02/23 14:43 Urine Urobilinogen <2.0 mg/dL (<2.0) 04/02/23 14:43 Ur Leukocyte Esterase Negative (Negative) 04/02/23 14:43 Urine Opiates Screen Not Detected (NotDetected) 04/02/23 14:43 Ur Oxycodone Screen Not Detected (NotDetected) 04/02/23 14:43 Urine Methadone Screen Not Detected (NotDetected) 04/02/23 14:43 Ur Propoxyphene Screen Not Detected (NotDetected) 04/02/23 14:43 Ur Barbiturates Screen Not Detected (NotDetected) 04/02/23 14:43 U Tricyclic Antidepress Not Detected (NotDetected) 04/02/23 14:43 Ur Phencyclidine Scrn Not Detected (NotDetected) 04/02/23 14:43 Ur Amphetamines Screen Not Detected (NotDetected) 04/02/23 14:43 U Methamphetamines Scrn Not Detected (NotDetected) 04/02/23 14:43 U Benzodiazepines Scrn Not Detected (NotDetected) 04/02/23 14:43 Urine Cocaine Screen Not Detected (NotDetected) 04/02/23 14:43 U Marijuana (THC) Screen Not Detected (NotDetected) 04/02/23 14:43 Coronavirus (PCR) Not Detected (Not Detectd) 04/02/23 14:35 04/03/23 15:34 04/03/23 15:45
[2023-04-03 17:57] LABS: Glucose,Whole Blood 108 mg/dL (70-110)
[2023-04-03 20:01] LABS: Glucose,Whole Blood 178 mg/dL (70-110)
[2023-04-03 20:11] LABS: Basophils # (A) 0.1 k/uL (0-0.2); Basophils % (A) 1 %; Eosinophils # (A) 0.6 k/uL (0-0.7); Eosinophils % (A) 4 %; HCT 50.3 % (39.0-53.0); HGB 16.6 gm/dL (13.0-17.5); Lymphocytes # (A) 1.7 k/uL (1.0-4.8); Lymphocytes % (A) 12 %; MCH 30.7 pg (25.0-35.0); MCHC 32.9 g/dL (31.0-37.0); MCV 93.3 fL (80.0-100.0); Mean Platelet Volume 8.5; Monocytes # (A) 0.7 k/uL (0-1.0); Monocytes % (A) 5 %; Neutrophils # (A) 10.8 k/uL (1.3-7.7); Neutrophils % (A) 77 %; Platelet Count 319 k/uL (150-450); RBC 5.39 m/uL (4.30-5.90); RDW 12.5 % (11.5-15.5); WBC 14.1 k/uL (3.8-10.6)
[2023-04-03 20:24] LABS: African American GFR (CKD) >90 (>60 ml/min/1.73 sqM); Albumin 4.6 g/dL (3.5-5.0); Anion Gap 13 mmol/L; Blood Urea Nitrogen 18 mg/dL (9-20); Carbon Dioxide 27 mmol/L (22-30); Chloride 96 mmol/L (98-107); Glucose 150 mg/dL (74-99); Non-African American GFR(CKD) 80 (>60 ml/min/1.73 sqM); Potassium 4.5 mmol/L (3.5-5.1); Sodium 136 mmol/L (137-145); Total Protein 8.2 g/dL (6.3-8.2)
[2023-04-03 20:25] LABS: ALT 28 U/L (4-49); AST 30 U/L (17-59); Alkaline Phosphatase 101 U/L (38-126); Calcium 10.1 mg/dL (8.4-10.2); Total Bilirubin 0.6 mg/dL (0.2-1.3)
[2023-04-03] MEDS: QUEtiapine 50 MG TAB PO SCH (20:40)
[2023-04-03] MEDS: GABAPENTIN 300 MG CAP PO SCH (20:40)
[2023-04-04 07:57] LABS: Glucose,Whole Blood 139 mg/dL (70-110)
[2023-04-04] MEDS: INSULIN ASPART (NovoLOG) 100 UNIT/ML VIAL SQ SCH ×4 (07:59→20:57)
[2023-04-04] MEDS: FUROSEMIDE 40 MG TAB PO SCH (08:45)
[2023-04-04] MEDS: MULTIVITAMINS, THERA 1 EACH TAB PO SCH (08:46)
[2023-04-04] MEDS: lisinopriL 10 MG TAB PO SCH ×2 (08:46→20:49)
[2023-04-04] MEDS: ASPIRIN 81 MG PO SCH (08:46)
[2023-04-04] MEDS: metFORMIN 850 MG TAB PO SCH ×2 (08:46→20:49)
[2023-04-04] MEDS: GABAPENTIN 300 MG CAP PO SCH ×2 (08:46→20:49)
[2023-04-04] MEDS: DAPAGLIFLOZIN PROPANEDIOL 5 MG TABLET PO SCH (08:46)
[2023-04-04] MEDS: METOPROLOL SUCCINATE (ER) 100 MG TAB.ER.24H PO SCH (08:46)
[2023-04-04] MEDS: BACLOFEN 10 MG TAB PO SCH (08:46)
[2023-04-04] MEDS: NICOTINE 14MG/24HR PATCH TRANSDERM SCH (08:47)
--- NOTE | 2023-04-04 12:41 | P.PN ---
Progress Note - Text Progress Note Date: 04/04/23 Interval history: Patient was seen today and was seen in his room sitting. he was agreeable to be seen today by software writer in the office. he states that he got into an argument with his grand kids and was upset and left the situation. Patient claims that he is still feeling anxious, mild depression at this time. he claims that at home he was irritable at times aswell, this is improving mildly at this time. Patient was rambling, was fairly logical. he was focused on his condition and worried about his insurance. he states that he is sleeping a bit better at night, claims that have an improinv appetite. at this time he is denying any Ah or VH and denying any Si or Hi. not reporting any side effects. Mental status examinations: General Appearance: Patient appears to be older than stated age, with long talbert hair and long epps. Patient appears to have good hygiene and grooming. Behavior: Patient is seated without any agitated behavior. attempts to cooperate. Speech: Patient's speech is fluent and non-pressured. Mood/Affect: Patient reports their mood is improving mildly, still anxious, congruent affect. Suicidality/Homicidality: Patient denies having any homicidal ideation intent or plan. Denies any suicidal ideation,intent or plan. Perceptions: Patient denies any visual hallucinations and denies any auditory hallucinations. Though content/process: There is no evidence of any delusional thought content and thought process is linear and goal-directed. rambling at times, focused on his sx Memory and concentration: AOX3, grossly intact for the purposes of this session Judgment and insight: improving mildly IMPRESSIONS: Unspecified depressive disorder, r/o bipolar depression Rule out Intermittent Explosive Disorder Alcohol use disorder, in remission PLAN: -Patient is admitted under voluntary status to [facility] for stabilization of psychiatric symptoms and safety. Patient has signed adult voluntary form and medication consent and is placed in patient's chart. -Medications: Seroquel 50 mg QHS for mood/sleep. added lexapro 5 mg daily for mood/anxiety. Gabapentin 300 mg BID for mood stabilization. -Ativan and Haldol PRN for agitation/aggression -NRT - not needed since he does not smoke tobacco currently. -SW on board for discharge planning. Encourage patient to participate in groups to work on coping skills. Plan for discharge in 1-2 days if continues to stabilize.
[2023-04-04 12:53] LABS: Glucose,Whole Blood 93 mg/dL (70-110)
[2023-04-04] MEDS: ESCITALOPRAM 5 MG TAB PO SCH (12:55)
[2023-04-04 17:49] LABS: Glucose,Whole Blood 89 mg/dL (70-110)
[2023-04-04 19:48] LABS: Glucose,Whole Blood 193 mg/dL (70-110)
[2023-04-04] MEDS: QUEtiapine 50 MG TAB PO SCH (20:49)
[2023-04-05 07:58] LABS: Glucose,Whole Blood 140 mg/dL (70-110)
[2023-04-05] MEDS: INSULIN ASPART (NovoLOG) 100 UNIT/ML VIAL SQ SCH ×4 (08:46→20:00)
[2023-04-05] MEDS: metFORMIN 850 MG TAB PO SCH ×2 (08:47→20:37)
[2023-04-05] MEDS: MULTIVITAMINS, THERA 1 EACH TAB PO SCH (08:48)
[2023-04-05] MEDS: lisinopriL 10 MG TAB PO SCH ×2 (08:48→20:37)
[2023-04-05] MEDS: ESCITALOPRAM 5 MG TAB PO SCH (08:48)
[2023-04-05] MEDS: ASPIRIN 81 MG PO SCH (08:48)
[2023-04-05] MEDS: BACLOFEN 10 MG TAB PO SCH (08:48)
[2023-04-05] MEDS: METOPROLOL SUCCINATE (ER) 100 MG TAB.ER.24H PO SCH (08:48)
[2023-04-05] MEDS: GABAPENTIN 300 MG CAP PO SCH ×2 (08:48→20:37)
[2023-04-05] MEDS: FUROSEMIDE 40 MG TAB PO SCH (08:48)
[2023-04-05] MEDS: DAPAGLIFLOZIN PROPANEDIOL 5 MG TABLET PO SCH (08:48)
[2023-04-05] MEDS: NICOTINE 14MG/24HR PATCH TRANSDERM SCH (08:51)
--- NOTE | 2023-04-05 10:09 | P.PN ---
Progress Note - Text Progress Note Date: 04/05/23 Interval history: Patient was seen today and was seen in his room sitting. he was agreeable to be seen today by continuity writer in the office. Patient claims that he is improving mildly in terms of his mood and anxiety. He states that he was over sedated last night and almost up to her breakfast. He claims that he was confused about that this morning and believes that the Seroquel was too hyper dose. He states that he is willing to try a ssis etl developer dose. He claims that he is gradually improving ove rall. He claims that he is trying to go to groups and participate as best as he can. states that the mood swings are improving mildly. claims that have an improving appetite. at this time he is denying any Ah or VH and denying any Si or Hi. not reporting any side effects. Mental status examinations: General Appearance: Patient appears to be older than stated age, with long talbert hair and long epps. Patient appears to have good hygiene and grooming. Behavior: Patient is seated without any agitated behavior. more cooperative today, less irritable. Speech: Patient's speech is fluent and non-pressured. Mood/Affect: Patient reports their mood is improving mildly, congruent affect. Suicidality/Homicidality: Patient denies having any homicidal ideation intent or plan. Denies any suicidal ideation,intent or plan. Perceptions: Patient denies any visual hallucinations and denies any auditory hallucinations. Though content/process: There is no evidence of any delusional thought content and thought process is linear and goal-directed. rambling at times Memory and concentration: AOX3, grossly intact for the purposes of this session Judgment and insight: improving mildly IMPRESSIONS: Unspecified depressive disorder, r/o bipolar depression Rule out Intermittent Explosive Disorder Alcohol use disorder, in remission PLAN: -Patient is admitted under voluntary status to [facility] for stabilization of psychiatric symptoms and safety. Patient has signed adult voluntary form and medication consent and is placed in patient's chart. -Medications: decrease Seroquel 25 mg QHS for mood/sleep. continue lexapro 5 mg daily for mood/anxiety. add melatonin 2 mg qhs for sleep. Gabapentin 300 mg BID for mood stabilization. -Ativan and Haldol PRN for agitation/aggression -NRT - not needed since he does not smoke tobacco currently. -SW on board for discharge planning. Encourage patient to participate in groups to work on coping skills. Plan for discharge tomorrow back home. Sw to ensure safe home envt.
[2023-04-05] MEDS: HYDROcodone/APAP 10-325MG 1 EACH TAB PO PRN (10:49)
[2023-04-05 12:44] LABS: Glucose,Whole Blood 102 mg/dL (70-110)
[2023-04-05 18:04] LABS: Glucose,Whole Blood 119 mg/dL (70-110)
[2023-04-05 19:50] LABS: Glucose,Whole Blood 116 mg/dL (70-110)
[2023-04-05] MEDS ORDERED: MELATONIN 1 MG TAB PO SCH (21:00)
[2023-04-05] MEDS ORDERED: QUEtiapine 25 MG TAB PO SCH (21:00)
[2023-04-06 08:14] LABS: Glucose,Whole Blood 123 mg/dL (70-110)
[2023-04-06] MEDS: INSULIN ASPART (NovoLOG) 100 UNIT/ML VIAL SQ SCH ×2 (08:16→13:41)
[2023-04-06] MEDS: lisinopriL 10 MG TAB PO SCH (09:04)
[2023-04-06] MEDS: DAPAGLIFLOZIN PROPANEDIOL 5 MG TABLET PO SCH (09:04)
[2023-04-06] MEDS: METOPROLOL SUCCINATE (ER) 100 MG TAB.ER.24H PO SCH (09:04)
[2023-04-06] MEDS: GABAPENTIN 300 MG CAP PO SCH (09:05)
[2023-04-06] MEDS: MULTIVITAMINS, THERA 1 EACH TAB PO SCH (09:05)
[2023-04-06] MEDS: ESCITALOPRAM 5 MG TAB PO SCH (09:05)
[2023-04-06] MEDS: FUROSEMIDE 40 MG TAB PO SCH (09:05)
[2023-04-06] MEDS: metFORMIN 850 MG TAB PO SCH (09:05)
[2023-04-06] MEDS: BACLOFEN 10 MG TAB PO SCH (09:05)
[2023-04-06] MEDS: HYDROcodone/APAP 10-325MG 1 EACH TAB PO PRN (09:06)
[2023-04-06] MEDS: ASPIRIN 81 MG PO SCH (09:07)
[2023-04-06] MEDS: NICOTINE 14MG/24HR PATCH TRANSDERM SCH (09:08)
[2023-04-06 09:10] VITALS: BP 132/64; PULSE 90; RESP 17; TEMP 97.5
--- NOTE | 2023-04-06 11:30 | P.DS ---
Providers Date of admission: 04/02/23 16:10 Expected date of discharge: 04/06/23 Attending physician: Teja Rubio MD Consults: 04/02/23 16:13 Consult Physician Routine Consulting Provider: Fartun Cintron Consult Reason/Comments: H&P Do you want consulting provider notified?: Yes Primary care physician: Donna Cohn - Discharge Diagnosis(es) (1) Depressive disorder Current Visit: Yes Status: Acute Priority: High (2) Alcohol use disorder in remission Current Visit: Yes Status: Acute Priority: Medium Hospital Course: Admission HPI: Admission note was completed by Dr Cruz "Patient presented to the hospital on 04/02/23 due to endorsing homicidal ideations. Per EPS note, "Pt has multiple life stressors, including caring for his 4 grandkids aged 12-15, he has CPS invol vement currently d/t aligations of giving his grandkids ETOH and drugs. Pt has increased anxiety and increased stress within the household. Pt states that he had his bring him here because he felt as if he was going to hurt someone. He got into a verbal altercation with his granddaughter in which her brother and grandson got involved to remove pt from the situation. Pt then began to get into it with his grandson whom he threatened to harm. Pt states, " if a gun were in a drawer I may have used it today". He was scared that he would kill someone today. He states he walked out of the household and began to drive and thought about just driving out of state. While in the car he states he thought about vearing off the road to hit someone. He states that he then had his bring him here after he returned home. Pt does have access to a gun in the household. Per a phone call with Pts , she states that he is the only one with a shahid to the safe and he can access the weapon. She states that he threatens everyone and is verbally aggressive. She thought that he was going to hit his granddaughter today, she does states that he has NOT hit anyone in the home. Pt states that he has no supports and feels like he needs counseling. He admits to having a viscous temper and worried about being out of control. Pt does not see anyone currently for mental health. Denies SI, hallucinations, or delusions."On assessment today, patient is calm and cooperative. He admits he was feeling overwhelmed and stressed over financial difficulties with the bank claiming he owed back taxes, and as well as raising his son's 4 children (ages 12- 15 years old). He denies supplying his grandkids with alcohol and marijuana. He also has his 21 year old grandchild and his and a 3 yo great-granddaughter staying with them due to their financial difficulties. Today, he admits to mild depression when he thinks about his life stressors. He reports irritability/anger. He reports good sleep, however he is prescribed Seroquel at bedtime for sleep. He denies excessive guilt and denies anhedonia. He denies SI/HI, intent or plan. He has a gun (.22 caliber) in pieces (disassembled) and locked in a safe. He has no plans on using the gun to harm himself or others. He is future-oriented and wants to go to [facility] for counseling. Patient denies any suicidal or homicidal ideation, intent or plan. At this time patient denies any auditory or visual hallucinations. Patient denies any flight of ideas racing thoughts and increased in goal directed behavior. Patient admits to using marijuana about once a month. He denies any other illicit drug. He drinks about one beer a week. He reports he has a remote history of heavy alcohol use, reports he used to drink heavy in his 30's, for about 15 years. He reports he quit his drinking heavily when his threatened to leave him, and he quit cold turkey. He is a former smoker. " Hospital course: Upon admission to the unit patient was directable and agreeable to commence treatment and signed adult voluntary form . Patient got along well with other patients on the unit and followed unit protocol. Patient was compliant with the medications and denied any side effects throughout hospital course. Patient was started on Seroquel however need to be decreased down to 25 mg daily at bedtime for mood/insomnia/anxiety, Lexapro 5 mg daily for mood/anxiety, melatonin 3 mg daily at bedtime for sleep, he was continued on his home pain medications including Neurontin and [place]. Patient spoke of his stressors and engaged in therapy both group and individual. Patient was also seen by medical team for history and physical exam. Throughout the course of the hospitalization patient gradually improved with regards to mood, anxiety, irritability/mood swings, sleep and returned back to their baseline level of functioning. On the day of discharge patient denied any suicidal or homicidal ideations intent or plan denied any auditory or visual hallucinations. Patient endorsed wanting to live for his health and family. The patient denied any access to guns or weapons. Patient denied any paranoia and did not endorse any delusions. Patient does hav e a significant history of substance abuse and was counseled on abstaining from all substances including alcohol and marijuana. Patient was also counseled on the medications and need for regular compliance and was encouraged to follow-up with their outpatient appointment for mental health and also for primary care. Prior to discharge a family meeting will be arranged by psychologist social to answer any questions and ensure safety upon discharge. She will be picked up by his from the hospital. Mental status exam: General Appearance: Patient appears to be mildly overweight, long epps, wearing glasses, long white hair, stated age is alert, pleasant, and cooperative. Patient is in no acute distress and has improved hygiene and grooming Behavior: Patient is calmly seated without any agitated behavior. Speech: Patient's speech is fluent and nonpressured. Mood/Affect: Patient reports their mood is "better", affect is congruent and euthymic. Suicidality/Homicidality: Patient denies having any suicidal or homicidal ideation intent or plan. Perceptions: Patient denies any auditory or visual hallucinations. Though content/process: There is no evidence of any delusional thought content and thought process is linear and goal-directed. more future oriented Memory and concentration: AOX3, grossly intact for the purposes of this session. Can spell "WORLD" backwards correctly. Judgment and insight: improved with guarded prognosis Impression: Depressive disorder unspecified, rule out bipolar depression Rule out intermittent explosive disorder Alcohol use disorder in remission Plan: -Continue with discharge today as patient has improved and stabilized psychiatrically and is not currently an imminent threat to himself and/or others. Patient will remain at chronically elevated risk for harm to self and/or others due to his impulsivity. -Continue medications: Seroquel 25 mg daily at bedtime for mood/insomnia/anxiety, Lexapro 5 mg daily for mood/anxiety, melatonin 3 mg daily at bedtime for sleep. -Patient was counseled on the need for medication compliance and appropriate follow-up at mental health and also primary care for medical issues. Patient verbalized understanding and agreed. -Social work to arrange for and conduct family meeting to ensure safety upon discharge and answer any questions/concerns. Social work also to arrange for patients follow up appointments with [facility] for psychiatric care along with follow up with primary care provider. -Patient counseled on abstaining from recreational drugs and marijuana and alcohol. Was informed/educated on the adverse effects on their physical and mental health. Patient verbally agreed and understood. -Patient was instructed to return to the hospital or seek immediate medical care if their psychiatric or medical symptoms do worsen or reoccur. Allergies Allergy/AdvReac Type Severity Reaction Status Date / Time No Known Allergies Allergy Verified 04/02/23 17:30 Laboratory Results WBC 14.1 k/uL (3.8-10.6) H 04/03/23 19: RBC 5.39 m/uL (4.30-5.90) 04/03/23 19: Hgb 16.6 gm/dL (13.0-17.5) 04/03/23 19: Hct 50.3 % (39.0-53.0) 04/03/23 19: MCV 93.3 fL (80.0-100.0) 04/03/23 19: MCH 30.7 pg (25.0-35.0) 04/03/23 19: MCHC 32.9 g/dL (31.0-37.0) 04/03/23 19: RDW 12.5 % (11.5-15.5) 04/03/23 19: Plt Count 319 k/uL (150-450) 04/03/23 19: MPV 8.5 04/03/23 19: Neutrophils % 77 % 04/03/23 19: Lymphocytes % 12 % 04/03/23 19: Monocytes % 5 % 04/03/23 19: Eosinophils % 4 % 04/03/23 19: Basophils % 1 % 04/03/23 19: Neutrophils # 10.8 k/uL (1.3-7.7) H 04/03/23 19: Lymphocytes # 1.7 k/uL (1.0-4.8) 04/03/23 19:29 Monocytes # 0.7 k/uL (0-1.0) 04/03/23 19:29 Eosinophils # 0.6 k/uL (0-0.7) 04/03/23 19:29 Basophils # 0.1 k/uL (0-0.2) 04/03/23 19:29 Sodium 136 mmol/L (137-145) L 04/03/23 19:29 Potassium 4.5 mmol/L (3.5-5.1) 04/03/23 19:29 Chloride 96 mmol/L (98-107) L 04/03/23 19:29 Carbon Dioxide 27 mmol/L (22-30) 04/03/23 19:29 Anion Gap 13 mmol/L 04/03/23 19:29 BUN 18 mg/dL (9-20) 04/03/23 19:29 Creatinine 0.98 mg/dL (0.66-1.25) 04/03/23 19:29 Est GFR (CKD-EPI)AfAm >90 (>60 ml/min/1.73 sqM) 04/03/23 19:29 Est GFR (CKD-EPI)NonAf 80 (>60 ml/min/1.73 sqM) 04/03/23 19:29 Glucose 150 mg/dL (74-99) H 04/03/23 19:29 POC Glucose (mg/dL) 123 mg/dL (70-110) H 04/06/23 08:12 POC Glu Change Management Expert Rose Avila 04/06/23 08:[address] Glu mg/dL 151 mg/dL 04/03/23 19:29 Hemoglobin A1c 6.9 % (<=6.0) H 04/03/23 19:29 Calcium 10.1 mg/dL (8.4-10.2) 04/03/23 19:29 Total Bilirubin 0.6 mg/dL (0.2-1.3) 04/03/23 19:29 AST 30 U/L (17-59) 04/03/23 19:29 ALT 28 U/L (4-49) 04/03/23 19:29 Alkaline Phosphatase 101 U/L (38-126) 04/03/23 19:29 Total Protein 8.2 g/dL (6.3-8.2) 04/03/23 19:29 Albumin 4.6 g/dL (3.5-5.0) 04/03/23 19:29 TSH 0.786 mIU/L (0.465-4.680) 04/03/23 19:29 Urine Color Light Yellow 04/02/23 14:43 Urine Appearance Clear (Clear) 04/02/23 14:43 Urine pH 5.0 (5.0-8.0) 04/02/23 14:43 Ur Specific [place] 1.019 (1.001-1.035) 04/02/23 14:43 Urine Protein Negative (Negative) 04/02/23 14:43 Urine Glucose (UA) 4+ (Negative) H 04/02/23 14:43 Urine Ketones Negative (Negative) 04/02/23 14:43 Urine Blood Negative (Negative) 04/02/23 14:43 Urine Nitrite Negative (Negative) 04/02/23 14:43 Urine Bilirubin Negative (Negative) 04/02/23 14:43 Urine Urobilinogen <2.0 mg/dL (<2.0) 04/02/23 14:43 Ur Leukocyte Esterase Negative (Negative) 04/02/23 14:43 Urine Opiates Screen Not Detected (NotDetected) 04/02/23 14:43 Ur Oxycodone Screen Not Detected (NotDetected) 04/02/23 14:43 Urine Methadone Screen Not Detected (NotDetected) 04/02/23 14:43 Ur Propoxyphene Screen Not Detected (NotDetected) 04/02/23 14:43 Ur Barbiturates Screen Not Detected (NotDetected) 04/02/23 14:43 U Tricyclic Antidepress Not Detected (NotDetected) 04/02/23 14:43 Ur Phencyclidine Scrn Not Detected (NotDetected) 04/02/23 14:43 Ur Amphetamines Screen Not Detected (NotDetected) 04/02/23 14:43 U Methamphetamines Scrn Not Detected (NotDetected) 04/02/23 14:43 U Benzodiazepines Scrn Not Detected (NotDetected) 04/02/23 14:43 Urine Cocaine Screen Not Detected (NotDetected) 04/02/23 14:43 U Marijuana (THC) Screen Not Detected (NotDetected) 04/02/23 14:43 Coronavirus (PCR) Not Detected (Not Detectd) 04/02/23 14:35 Vital Signs Temp 98 F 04/05/23 17:51 Pulse 93 04/05/23 17:51 Resp 14 04/05/23 17:51 BP 123/73 04/05/23 17:51 Pulse Ox 95 04/05/23 17:51 FiO2 Patient Condition at Discharge: Stable Plan - Discharge Summary New Discharge Prescriptions: New QUEtiapine [SEROquel] 25 mg PO HS 30 Days #30 tab Nicotine 14Mg/24Hr Patch [Habitrol] 1 patch TRANSDERM DAILY 14 Days #14 patch Escitalopram [Lexapro] 5 mg PO DAILY 30 Days #30 tab Melatonin 3 mg PO HS 30 Days #30 tablet Continue Aspirin EC [Ecotrin Low Dose] 81 mg PO DAILY HYDROcodone/APAP 10-325MG [[place] 10-325] 1 tab PO QID Gabapentin [Neurontin] 100 mg PO BID metFORMIN HCL [Glucophage] 850 mg PO BID Metoprolol Succinate (ER) [Toprol XL] 100 mg PO DAILY Empagliflozin [Jardiance] 10 mg PO DAILY Enalapril [Vasotec] 5 mg PO BID Multivit-Min/FA/Lycopen/Lutein [Centrum Silver Tablet] 1 tab PO DAILY Ubidecarenone [Co Q-10] 300 mg PO DAILY Baclofen [Lioresal] 20 mg PO HS Furosemide [Lasix] 40 mg PO DAILY Potassium Gluconate [Potassium Gluconate ER] 99 mg PO DAILY Calcium Citrate/Vitamin D3 [Citracal + D Maximum Caplet] 1 tab PO DAILY Discontinued QUEtiapine FUMARATE [SEROquel] 25 mg PO HS Discharge Medication List Aspirin EC [Ecotrin Low Dose] 81 mg PO DAILY 03/19/17 [History] HYDROcodone/APAP 10-325MG [[place] 10-325] 1 tab PO QID 03/19/17 [History] Baclofen [Lioresal] 20 mg PO HS 02/22/21 [History] Furosemide [Lasix] 40 mg PO DAILY 02/22/21 [History] Gabapentin [Neurontin] 100 mg PO BID 02/22/21 [History] Metoprolol Succinate (ER) [Toprol XL] 100 mg PO DAILY 02/22/21 [History] Potassium Gluconate [Potassium Gluconate ER] 99 mg PO DAILY 08/01/21 [History] metFORMIN HCL [Glucophage] 850 mg PO BID 02/22/21 [History] Calcium Citrate/Vitamin D3 [Citracal + D Maximum Caplet] 1 tab PO DAILY 04/02/23 [History] Empagliflozin [Jardiance] 10 mg PO DAILY 04/02/23 [History] Enalapril [Vasotec] 5 mg PO BID 04/02/23 [History] Multivit-Min/FA/Lycopen/Lutein [Centrum Silver Tablet] 1 tab PO DAILY 04/02/23 [History] Ubidecarenone [Co Q-10] 300 mg PO DAILY 04/02/23 [History] Escitalopram [Lexapro] 5 mg PO DAILY 30 Days #30 tab 04/06/23 [Rx] Melatonin 3 mg PO HS 30 Days #30 tablet 04/06/23 [Rx] Nicotine 14Mg/24Hr Patch [Habitrol] 1 patch TRANSDERM DAILY 14 Days #14 patch 04/06/23 [Rx] QUEtiapine [SEROquel] 25 mg PO HS 30 Days #30 tab 04/06/23 [Rx] Follow up Appointment(s)/Referral(s): Donna Cohn DO [Primary Care Provider] - 1-2 days Patient Instructions/Handouts: Generalized Anxiety Disorder (ED) Activity/Diet/Wound Care/Special Instructions: Avoid the use of street drugs and alcohol. Take all medications as prescribed. When you are in need of refills on your medications, please contact your medical provider and/or outpatient psychiatrist/provider to have this done. Please go to your scheduled outpatient appointment for aftercare treatment. If symptoms return or become worse, call the crisis line at and/or go to the nearest emergency room for evaluation. National Suicide Hotline 988. Discharge Disposition: HOME SELF-CARE
[2023-04-06 12:47] LABS: Glucose,Whole Blood 94 mg/dL (70-110)
== END 2023-04-06 13:44 | disposition home or self-care (01) | DRG 881 ==
LOC: EC 12:07 → 3MHU 16:10
PROVIDERS: ADMIT Psychiatry & Neurology Psychiatry; ATTEND Psychiatry & Neurology Psychiatry
DX: F32.A Depression, unspecified (principal); E78.5 Hyperlipidemia, unspecified; F10.21 Alcohol dependence, in remission; G47.00 Insomnia, unspecified; G89.29 Other chronic pain; I10 Essential (primary) hypertension; R45.850 Homicidal ideations; Z79.82 Long term (current) use of aspirin; Z79.84 Long term (current) use of oral hypoglycemic drugs; Z79.899 Other long term (current) drug therapy; Z87.891 Personal history of nicotine dependence; Z20.822 Contact with and (suspected) exposure to COVID-19
CPT/HCPCS: 36415; 80053; 80306; 81003; 82075; 83036; 84443; 85025; 87635

== ENCOUNTER 2023-08-11 06:46 | Day surgery (SDC) | payer MEDICARE, OTHER ==
[~2023-08-11 06:46] MED LIST: LACTATED RINGERS 1,000 ML IV SCH; LIDOCAINE 1% (10MG/ML) FOR IV START INTRADERMA PRN
[2023-08-11] MEDS ORDERED: LACTATED RINGERS 1,000 ML IV ONE (07:10)
[2023-08-11 07:33] LABS: Glucose,Whole Blood 134 mg/dL (70-110)
[2023-08-11 07:41] VITALS: TEMP 97.7
[2023-08-11] MEDS ORDERED: PROPOFOL 10 MG/ML 20 ML VIAL IV ONE (07:45)
--- NOTE | 2023-08-11 07:50 | P.GSHP ---
History of Present Illness H&P Date: 08/11/23 Chief Complaint: Screening Colonoscopy This is a 68-year-old male presents today for screening colonoscopy. Patient denies any significant GI complaints. Past Medical History Past Medical History: Chest Pain / Angina, Diabetes Mellitus, Hyperlipidemia, Hypertension History of Any Multi-Drug Resistant Organisms: None Reported Past Surgical History: Back Surgery, Hernia Repair, Orthopedic Surgery Additional Past Surgical History / Comment(s): hemmorhoidectomy, pt. states he had 3 seperate back surgeries; he broke his L5 had a ladder cage put in there, crushed disc in his thoracic spine that he had a fusion on and right/left shoulder surgeries Past Anesthesia/Blood Transfusion Reactions: No Reported Reaction Smoking Status: Former smoker - Past Family History Father Family Medical History: Chest Pain / Angina, Coronary Artery Disease (CAD) Mother Family Medical History: Cancer, Myocardial Infarction (DC) Medications and Allergies Home Medications Medication Instructions Recorded Confirmed Type Aspirin EC [Ecotrin Low Dose] 81 mg PO DAILY 03/19/17 08/11/23 History HYDROcodone/APAP 10-325MG [[place] 1 tab PO QID 03/19/17 08/11/23 History 10-325] Baclofen [Lioresal] 20 mg PO HS 02/22/21 08/11/23 History Furosemide [Lasix] 40 mg PO DAILY 02/22/21 08/11/23 History Gabapentin [Neurontin] 100 mg PO BID 02/22/21 08/11/23 History Metoprolol Succinate (ER) [Toprol 100 mg PO DAILY 02/22/21 08/11/23 History XL] Potassium Gluconate [Potassium 99 mg PO DAILY 02/22/21 08/11/23 History Gluconate ER] metFORMIN HCL [Glucophage] 850 mg PO BID 02/22/21 08/11/23 History Calcium Citrate/Vitamin D3 1 tab PO DAILY 04/02/23 08/11/23 History [Citracal + D Maximum Caplet] Empagliflozin [Jardiance] 10 mg PO DAILY 04/02/23 08/11/23 History Enalapril [Vasotec] 5 mg PO BID 04/02/23 08/11/23 History Multivit-Min/FA/Lycopen/Lutein 1 tab PO DAILY 04/02/23 08/11/23 History [Centrum Silver Tablet] Ubidecarenone [Co Q-10] 300 mg PO DAILY 04/02/23 08/11/23 History Melatonin 3 mg PO HS 30 Days #30 tablet 04/06/23 08/11/23 Rx Escitalopram [Lexapro] 10 mg PO DAILY 08/04/23 08/11/23 History Allergies Allergy/AdvReac Type Severity Reaction Status Date / Time No Known Allergies Allergy Verified 08/11/23 07:14 Surgical - Exam Vital Signs Temp Pulse Resp BP Pulse Ox 97.7 F 105 H 16 153/95 94 L 08/11/23 07:10 08/11/23 07:10 08/11/23 07:10 08/11/23 07:10 08/11/23 07:10 - General well developed, well nourished, no distress - Eyes PERRL - ENT normal pinna - Neck no masses - Respiratory normal expansion - Cardiovascular Rhythm: regular - Abdomen Abdomen: soft, non tender Results - Labs Abnormal Lab Results - Last 24 Hours (Table) 08/11/23 Range/Units 07:23 POC Glucose (mg/dL) 134 H (70-110) mg/dL Assessment and Plan Assessment: We'll perform screening colonoscopy.
--- NOTE | 2023-08-11 08:14 | P.OP ---
Date of Procedure: 08/11/23 Preoperative Diagnosis: Screening colonoscopy Postoperative Diagnosis: Mild diverticulosis Procedure(s) Performed: Colonoscopy Anesthesia: MAC Surgeon: Dave Henderson Pathology: none sent Condition: stable Disposition: PACU Description of Procedure: The patient's placed on the endoscopy table in the lateral position. He received IV sedation. Digital rectal exam was performed. This revealed no abnormalities. The flexible colonoscope was then placed patient anus and passed throughout the entire colon. The ileocecal valve was visualized. The cecum, ascending and transverse colon appeared normal. The descending and; had mild diverticular changes. Scope was then brought back the rectum and this appeared normal. Scope was withdrawn from patient.
[2023-08-11 08:54] VITALS: BP 138/83; PULSE 91; RESP 18
== END 2023-08-11 09:06 | disposition home or self-care (01) ==
LOC: ORWHC2ENDO 06:46
PROVIDERS: ATTEND Surgery
DX: Z12.11 Encounter for screening for malignant neoplasm of colon (principal); K57.30 Diverticulosis of large intestine without perforation or abscess without bleeding; I20.9 Angina pectoris, unspecified; E11.9 Type 2 diabetes mellitus without complications; E78.5 Hyperlipidemia, unspecified; F12.90 Cannabis use, unspecified, uncomplicated; I10 Essential (primary) hypertension; F32.A Depression, unspecified; Z87.891 Personal history of nicotine dependence; Z82.49 Family history of ischemic heart disease and other diseases of the circulatory system; Z79.82 Long term (current) use of aspirin; Z79.84 Long term (current) use of oral hypoglycemic drugs; Z79.899 Other long term (current) drug therapy
CPT/HCPCS: J2704; G0121